=== PATIENT | female | born 1975 | race Caucasian/White ===

== ENCOUNTER 2016-11-04 22:10 | Emergency (ER) | payer OTHER ==
[~2016-11-04] VITALS: Ht 167.6 cm; Wt 49.4 kg
--- NOTE | 2016-11-04 22:55 | ED GI/GU/ABDOMINAL COMPLAINT ---
History of Present Illness General Chief Complaint: Abdominal Pain/Flank Pain Stated Complaint: ABD PAIN RADIATING TO BACK X 1 HR Source: patient, family Exam Limitations: no limitations Vital Signs & Intake/Output Vital Signs & Intake/Output Vital Signs Date Time Temp Pulse Resp B/P Pulse O2 O2 Flow FiO2 Ox Delivery Rate 11/05 0037 98.0 76 16 112/80 98 Room Air 11/04 2331 Room Air 11/04 2214 98.0 74 18 109/76 100 Room Air ED Intake and Output 11/05 0000 11/04 1200 Intake Total 1000 Output Total Balance 1000 Intake, IV 1000 Patient 109 lb Weight Allergies Coded Allergies: No Known Drug Allergies (NKDA 11/04/16) Reconcile Medications Ciprofloxacin HCl (Cipro) 500 MG TABLET 1 TAB PO BID infection Ondansetron (Zofran Odt) 4 MG TAB.RAPDIS 1 TAB SL TID PRN NAUSEA Triage Note: PT TO ED C/O EPIGASTRIC PAIN THAT GOES TO BACK, COMES AND GOES "FEELS LIKE THE KIDNEY STONE PAIN I HAD WHEN I WAS . DENIES UTI S/S. Triage Nurses Notes Reviewed? yes ? N Is pt currently ? No HPI: Patient is a 41-year-old female presents complaining of upper abdominal pain radiating to her back. Pain sudden onset at approximately 9 PM this evening. Pain is a sharp pain, severe, worsens with palpation. Approximately 3 episodes of vomiting since onset of pain. Patient last ate at approximately 6 PM this evening. Last bowel movement was this afternoon and normal. Patient has a history of kidney stones, reports that the back pain feels similar but she does not remember if she had the diffuse upper abdominal pain at that time. Patient denies fevers, chills, dysuria, hematuria. (COURTNEY HERNANDEZ) Past History Travel History Traveled to [place] past 21 day No Medical History Any Pertinent Medical History? see below for history Renal: nephrolithiasis Surgical History Surgical History: non-contributory Psychosocial History What is your primary language Turkish Tobacco Use: Never used ETOH Use: occasional use Illicit Drug Use: denies illicit drug use Family History Hx Contributory? No (COURTNEY HERNANDEZ) Review of Systems Review of Systems Constitutional: Denies: chills, fever. EENTM: Reports: no symptoms. Respiratory: Denies: cough, short of breath. Cardiovascular: Denies: chest pain. GI: Reports: see HPI. Genitourinary: Denies: discharge, dysuria, frequency, hematuria. Musculoskeletal: Reports: back pain. Skin: Reports: no symptoms. Neurological/Psychological: Reports: no symptoms. Hematologic/Endocrine: Reports: no symptoms. Immunologic/Allergic: Reports: no symptoms. (COURTNEY HERNANDEZ) Physical Exam Physical Exam General Appearance: well developed/nourished, alert, awake Head: atraumatic, normal appearance Eyes: Bilateral: normal appearance, PERRL, EOMI. Ears, Nose, Throat, Mouth: hearing grossly normal, moist mucous membrane Neck: normal inspection, supple, full range of motion Respiratory: normal breath sounds, chest non-tender, no respiratory distress, lungs clear Cardiovascular: regular rate/rhythm Gastrointestinal: normal bowel sounds, soft, diffuse abdominal tenderness Back: normal inspection, normal range of motion Extremities: normal range of motion Neurologic/Psych: no motor/sensory deficits, awake, alert, oriented x 3, normal gait, normal mood/affect Skin: intact, normal color, warm/dry Core Measures ACS in differential dx? No Severe Sepsis Present: No Septic Shock Present: No (COURTNEY HERNANDEZ) Progress Differential Diagnosis: appendicitis, biliary colic, bowel obstruction, cholecystitis, diverticulitis, ectopic , endometritis, gastritis, hepatitis, hernia, hemorrhoids, ischemic bowel, inflamm bowel dis, kidney stone, ovarian cyst, ovarian torsion, pancreatitis, PID/cervicitis, peptic ulcer, PUD/ GERD, perforated viscous, SBO, UTI/pyelo Plan of Care: Orders Procedure Date/time Status Add-on Test (ER Only) 11/05 0009 Active LIPASE 11/04 230 Complete LACTIC ACID 11/04 230 Complete COMPREHENSIVE METABOLIC PANEL 11/04 230 Complete CBC WITHOUT DIFFERENTIAL 11/04 2299 Complete AMYLASE 11/04 230 Complete CULTURE,URINE 11/04 2229 Active URINE 11/04 2217 Complete URINALYSIS 11/04 2217 Complete Laboratory Tests 11/04/16 2316: Anion Gap 13, Estimated GFR > 60, BUN/Creatinine Ratio 24.3, Glucose 91, Lactic Acid 1.2, Calcium 9.6, Total Bilirubin 0.8, AST 28, ALT 33, Alkaline Phosphatase 75, Total Protein 7.9, Albumin 4.5, Globulin 3.4, Albumin/Globulin Ratio 1.3, Amylase 80, Lipase 238, CBC w Diff NO MAN DIFF REQ, RBC 5.26, MCV 77.8 L, MCH 25.4 L, RDW 15.3 H, MPV 8.5, Gran % 69.1, Lymphocytes % 25.2, Monocytes % 4.5, Eosinophils % 1.0, Basophils % 0.2, Absolute Granulocytes 6.9 H, Absolute Lymphocytes 2.5, Absolute Monocytes 0.4, Absolute Eosinophils 0.1, Absolute Basophils 0, PUBS MCHC 32.7 L 11/04/162229: Urine Color YEL, Urine Clarity HAZY H, Urine pH 6.0, Ur Specific [place] 1.025, Urine Protein NEG, Urine Ketones NEG, Urine Nitrite NEG, Urine Bilirubin NEG, Urine Urobilinogen 0.2, Ur Leukocyte Esterase SMALL H, Ur Microscopic SEDIMENT EXAMINED, Urine RBC 1-3, Urine WBC 15-25 H, Ur Epithelial Cells MANY H, Urine Bacteria MANY H, Urine Hemoglobin SMALL H, Urine Glucose NEG, Urine Test NEGATIVE Microbiology 11/04 2229 URINE ROUT: Urine Culture - RECD 11/05/2016 12:15:38 AM: Pain and nausea significantly improved. Results of labs and imaging discussed with patient. Patient nontoxic appearing, appears stable for discharge with outpatient follow-up. (JAMES FREITAS,COURTNEY) Diagnostic Imaging: Viewed by Me: CT Scan. Discussed w/RAD: CT Scan. Radiology Impression: PATIENT: LALO MARLEY PRESENT AGE: 41 PATIENT ACCOUNT NO: [id number] : 77 LOCATION: [facility] ORDERING PHYSICIAN: COURTNEY FREITAS SERVICE DATE: 11/04/16 EXAM TYPE: CAT - CT ABD & PELVIS W IV CONTRAST EXAMINATION: CT ABDOMEN AND PELVIS WITH CONTRAST CLINICAL INFORMATION: Intra-abdominal infection. Severe abdominal pain. Tenderness. Nausea. COMPARISON: None TECHNIQUE: Multidetector volumetric imaging was performed of the abdomen and pelvis after the IV administration of 82 mL of Optiray 320 intravenous contrast. Sagittal and coronal reformatted images were obtained on the technologist's workstation. DLP: 247.48 mGy-cm FINDINGS: LUNG BASES: The visualized lung bases are unremarkable. Bilateral breast implants present. LIVER, GALLBLADDER, AND BILIARY TREE: The liver is normal in size, shape, and attenuation. No focal hepatic lesion or biliary ductal dilatation is present. The gallbladder is unremarkable with no evidence of radiopaque gallstones, gallbladder wall thickening, or obvious pericholecystic inflammatory changes. PANCREAS: Unremarkable. SPLEEN: Unremarkable. ADRENAL GLANDS: Unremarkable. KIDNEYS AND URETERS: The kidneys are normal in size, shape, and attenuation. No hydronephrosis, hydroureter, or calculi seen. No perinephric stranding. BLADDER: Unremarkable. GASTROINTESTINAL TRACT: The small and large bowel are unremarkable. The appendix is unremarkable. ABDOMINAL WALL: No significant hernia is appreciated. LYMPH NODES: Normal. VASCULAR: Unremarkable. PELVIC VISCERA: Uterus is retroverted. There is varices at the left pelvic sidewall with mildly prominent left ovarian vein. Crenulated follicle consistent with corpus luteum cyst with rim enhancement in the right ovary measuring 1 x 1.5 cm. Small amount of fluid in the cul-de-sac. OSSEOUS STRUCTURES: Unremarkable. IMPRESSION: No acute abnormality CT scan abdomen and pelvis. DICTATED BY: RAMILA DE PAZ MD DATE/TIME DICTATED:11/04/162343 FIELD EDUCATION COORDINATOR:MARK DATE/TIME TRANSCRIBED:11/04/162343 CONFIDENTIAL, DO NOT COPY WITHOUT APPROPRIATE AUTHORIZATION. <Electronically signed in Other Vendor System> SIGNED BY: RAMILA DE PAZ MD 11/04/16 0832 Initial ED EKG: none (COURTNEY HERNANDEZ) Departure Departure Time of Disposition: 14 Disposition: HOME OR SELF CARE Condition: Stable Clinical Impression Primary Impression: Abdominal pain Secondary Impressions: Urinary tract infection Referrals: STEPHANI LUIS MD (PCP/Family) Additional Instructions: Follow-up with her primary doctor within 24-48 hours for recheck. Return to the emergency department if he develops fevers, unable to stay hydrated, pain increasing, or worsening of symptoms. Departure Forms: Customer Survey General Discharge Information Prescriptions: Current Visit Scripts Ciprofloxacin HCl (Cipro) 1 TAB PO BID #14 TAB Ondansetron (Zofran Odt) 1 TAB SL TID PRN NAUSEA #10 TAB (COURTNEY HERNANDEZ) PA/METAL BONDING HELPER Co-Sign Statement Statement: ED Attending supervision documentation- [] I saw and evaluated the patient. I have also reviewed all the pertinent lab results and diagnostic results. I agree with the findings and the plan of care as documented in the PA's/METAL BONDING HELPER's documentation. [X] I have reviewed the ED Record and agree with the PA's/METAL BONDING HELPER's documentation. [] Additions or exceptions (if any) to the PAs/METAL BONDING HELPER's note and plan are summarized below: [] (SONYA DONALDSON,BRITTANY)
[2016-11-04 23:27] LABS: ABSOLUTE BASOPHIL COUNT 0 /CUMM (0.0-0.2); ABSOLUTE EOSINOPHIL COUNT 0.1 /CUMM (0.0-0.7); ABSOLUTE GRANULOCYTE CT 6.9 /CUMM (1.4-6.5); ABSOLUTE LYMPH COUNT 2.5 /CUMM (1.2-3.4); ABSOLUTE MONOCYTE COUNT 0.4 /CUMM (0.10-0.60); BASOPHIL % 0.2 % (0.0-2.0); GRANULOCYTE % 69.1 % (42.2-75.2); HEMATOCRIT 40.9 % (37-47); MEAN CORPUSCULAR HGB 25.4 PG (27.0-31.0); MEAN CORPUSCULAR HGB CONC 32.7 G/DL (33.0-37.0); MEAN CORPUSCULAR VOLUME 77.8 FL (81.0-99.0); MEAN PLATELET VOLUME 8.5 FL (7.4-10.4); PLATELET COUNT 193 /CUMM (130-400); RBC DISTRIBUTION WIDTH 15.3 % (11.5-14.5); RED BLOOD CELL CT 5.26 /CUMM (4.20-5.40); WHITE BLOOD CELL COUNT 9.9 /CUMM (4.8-10.8)
--- NOTE | 2016-11-04 23:53 | CT SCAN REPORT ---
EXAMINATION: CT ABDOMEN AND PELVIS WITH CONTRAST CLINICAL INFORMATION: Intra-abdominal infection. Severe abdominal pain. Tenderness. Nausea. COMPARISON: None TECHNIQUE: Multidetector volumetric imaging was performed of the abdomen and pelvis after the IV administration of 82 mL of Optiray 320 intravenous contrast. Sagittal and coronal reformatted images were obtained on the technologist's workstation. DLP: 247.48 mGy-cm FINDINGS: LUNG BASES: The visualized lung bases are unremarkable. Bilateral breast implants present. LIVER, GALLBLADDER, AND BILIARY TREE: The liver is normal in size, shape, and attenuation. No focal hepatic lesion or biliary ductal dilatation is present. The gallbladder is unremarkable with no evidence of radiopaque gallstones, gallbladder wall thickening, or obvious pericholecystic inflammatory changes. PANCREAS: Unremarkable. SPLEEN: Unremarkable. ADRENAL GLANDS: Unremarkable. KIDNEYS AND URETERS: The kidneys are normal in size, shape, and attenuation. No hydronephrosis, hydroureter, or calculi seen. No perinephric stranding. BLADDER: Unremarkable. GASTROINTESTINAL TRACT: The small and large bowel are unremarkable. The appendix is unremarkable. ABDOMINAL WALL: No significant hernia is appreciated. LYMPH NODES: Normal. VASCULAR: Unremarkable. PELVIC VISCERA: Uterus is retroverted. There is varices at the left pelvic sidewall with mildly prominent left ovarian vein. Crenulated follicle consistent with corpus luteum cyst with rim enhancement in the right ovary measuring 1 x 1.5 cm. Small amount of fluid in the cul-de-sac. OSSEOUS STRUCTURES: Unremarkable. IMPRESSION: No acute abnormality CT scan abdomen and pelvis.
[2016-11-05] MEDS ORDERED: CIPRO500 M1 PO (00:17)
[2016-11-05] MEDS ORDERED: ZOFRAN ODT4 M1 SL (00:17)
[2016-11-05 00:37] VITALS: BP 112/80
== END 2016-11-05 00:38 ==
LOC: ERH 22:10
PROVIDERS: Physician Assistant
DX: N39.0 Urinary tract infection, site not specified (principal)
CPT/HCPCS: 74177; 81001; 81025; 87071; 87086; 87147; 96374; J2405